=== PATIENT | female | born 1975 | race Caucasian/White ===

== ENCOUNTER 2016-10-11 16:05 | Inpatient (IN) ==
--- NOTE | 2016-10-11 18:45 | Emergency Department Note ---
Disposition Clinical Impression: Upper abdominal pain, Vomiting, History of Graham fundoplication, Pancreatitis , Dehydration, Renal insufficiency, Abnormal chest x-ray Disposition: Admitted As Inpatient Referrals: Guille Salazar MD [Primary Care Provider] - Forms: ED Satisfaction Letter General Adult HPI - General Chief complaint: ED Nausea/Vomiting/Diarrhea Stated complaint: "Has an graham wrap and is vomiting" Time Seen by Provider: 10/11/16 18:43 Source: patient, family Limitations: no limitations - History of Present Illness HPI Narrative: 41-year-old female reports to the emergency department complaining of abdominal pain with some retching and vomiting. She has a history of colostomy as well as Graham fundoplication. The patient is wheel chair bound secondary to cerebral palsy. There is no history of bloody emesis or stool. She reports some diarrhea and urinary symptoms. She thinks she may have a UTI she has had urinary symptoms for the last several days with abdominal pain and vomiting since earlier today. She is not known to be anticoagulated. There is no history of bloody emesis or stool. There is no history of chest pain or shortness of breath no fever or rupinder flank pain although some slight left- sided back pain is reported. There is no history of rash or injury. No confusion. The patient denies any sick contacts. She describes diarrhea as well. The patient is concerned she may be dehydrated, she states she has abdominal bloating and abdominal pain, she also also concerned about a possible UTI. She is not known to be diabetic. Pain Scale: 10 - Related Data Home Medications Medication Instructions Recorded Confirmed ALPRAZolam [Xanax 1 MG Tablet] 1 mg PO BID PRN 10/12/15 10/12/15 ARIPiprazole [Abilify] 20 mg PO DAILY 10/12/15 10/12/15 Baclofen [Lioresal] 10 mg PO TID 10/12/15 10/12/15 Cyclobenzaprine [Flexeril] 10 mg PO TID 10/12/15 10/12/15 DULoxetine [Cymbalta] 30 mg PO DAILY 10/12/15 10/12/15 Docusate [Colace] 100 mg PO BID 10/12/15 10/12/15 Ergocalciferol (VITAMIN D2) 50,000 unit PO QWEEK 10/12/15 10/12/15 [Vitamin D2 (50,000 UNIT)] Linaclotide [Linzess] 145 mcg PO BID 10/12/15 10/12/15 Meloxicam [Mobic] 7.5 mg PO BID 10/12/15 10/12/15 Metoprolol XL (24 HR) Succ [Toprol 25 mg PO HS 10/12/15 10/12/15 Xl] OxyCODONE CONC 5 - 20 mg PO Q6HR PRN 10/12/15 10/12/15 Promethazine [Phenergan] 25 mg PO Q6HR PRN 10/12/15 10/12/15 Topiramate [Topamax] 100 mg PO HS 10/12/15 10/12/15 Topiramate [Topamax] 150 mg PO QAM 10/12/15 10/12/15 traMADol [Ultram] 50 mg PO Q6HR PRN 10/12/15 10/12/15 Previous Rx's Medication Instructions Recorded HYDROcodone/Acet 5/325 mg [[place] 1 tab PO Q6H PRN #4 tab 07/29/16 5-325 mg] Fluconazole [Diflucan] 150 mg PO Q72H #2 tab 09/03/16 Levofloxacin [Levaquin] 500 mg PO DAILY #10 tablet 09/03/16 Allergies Allergy/AdvReac Type Severity Reaction Status Date / Time dicyclomine [From Bentyl] AdvReac Mild Hives Verified 02/09/16 15:51 acetaminophen AdvReac Unknown ELEVATED Verified 02/09/16 15:51 LIVER ENZYMES ethinyl estradiol AdvReac Unknown UNKNOWN Verified 02/09/16 15:51 [From Ndaeen] levonorgestrel AdvReac Unknown UNKNOWN Verified 02/09/16 15:51 [From Nadeen] lubiprostone [From Amitiza] AdvReac Unknown Hives Verified 02/09/16 15:51 metoclopramide [From Reglan] AdvReac Unknown SEVERE Verified 02/09/16 15:51 STOMACH CRAMPS nalbuphine [From Nubain] AdvReac Unknown Hives Verified 02/09/16 15:51 ondansetron AdvReac Unknown SEVERE Verified 02/09/16 15:51 [From Zofran (as STOMACH hydrochloride)] CRAMPS All systems ED: reviewed and negative except as stated. Past Medical History - Past Medical History Medical history: Reports: arthritis, asthma, diabetes, fibromyalgia, GERD, hyperlipidemia, migraine, other Surgical history: Reports: cholecystectomy, other Psychiatric history: Reports: anxiety BATTERY TEST ENGINEER history: Reports: no BATTERY TEST ENGINEER history - Social History Smoking Status: Never smoker Smokeless Tobacco Status: No Alcohol use: Reports: none Drug use: Reports: none Physical Exam - General Limitations: no limitations General appearance: in no apparent distress - Head Head exam: atraumatic, normocephalic, normal inspection - Eye Eye exam: Present: normal appearance, PERRL, EOMI - ENT ENT exam: normal exam, normal oropharynx, mucous membranes dry, TM's normal bilaterally, normal external ear exam - Neck Neck exam: Present: normal inspection, full ROM, trachea midline. Absent: meningismus - Chest Chest inspection: Present: normal inspection, symmetric chest wall rise. Absent : tenderness - Respiratory Respiratory exam: Present: normal lung sounds bilaterally. Absent: respiratory distress, wheezes, stridor, accessory muscle use, prolonged expiratory phase - Cardiovascular Cardiovascular exam: Present: regular rate, normal rhythm, normal heart sounds - Abdominal Exam Abdominal exam: Present: soft, tenderness, distention, normal bowel sounds, other (Colostomy in place.). Absent: guarding, rebound, rigidity, trauma, pulsatile mass Abdominal tenderness: Present: LUQ, epigastrium - Extremities Exam Extremities exam: Present: normal inspection, full ROM, normal capillary refill. Absent: tenderness, pedal edema, joint swelling, calf tenderness - Expanded Lower Extremity Exam Lower leg exam: Absent: Homans' sign Neurovascular/Tendon exam: Present: normal capillary refill. Absent: motor deficit, sensory deficit, tendon deficit, extremity cold to touch, pallor - Back Exam Back exam: Present: normal inspection, full ROM. Absent: tenderness, CVA tenderness (R), CVA tenderness (L), vertebral tenderness - Neurological Exam Neurological exam: Present: alert, oriented X3, CN II-XII intact, motor sensory deficit (Lower extremity paresis and weakness/chronic) - Psychiatric Psychiatric exam: Present: normal affect, normal mood - Skin Skin exam: Present: warm, dry, intact, normal color. Absent: rash, cyanosis, diaphoresis, erythema, pallor, mottled Course Vital Signs Temperature 97.5 F L 10/11/16 16:23 Pulse Rate 101 06/08/17 16:23 Respiratory Rate 20 10/11/16 16:23 Blood Pressure 121/85 10/11/16 16:23 O2 Sat by Pulse Oximetry 97 10/11/16 16:23 Temperature 97.5 F L 10/11/16 16:23 Pulse Rate 101 10/11/16 16:23 Respiratory Rate 20 10/11/16 16:23 Blood Pressure 121/85 10/11/16 16:23 O2 Sat by Pulse Oximetry 97 10/11/16 16:23 Oxygen Delivery Oxygen Delivery Room Air Medical Decision Making - [facility] Narrative Medical decision making narrative: The patient has had recurrent vomiting, she has changes suggestive of dehydration with hemoconcentration and elevated BUN and creatinine, low-grade lactic acidosis is noted, abnormal urinalysis noted, Rocephin given to cover for possible UTI, do not think the patient is necessarily septic, IV fluids given Phenergan and Dilaudid given. Her CT scan shows what appears to be an ileus or early partial small bowel obstruction. She also has an elevated lipase. Based on the patient's symptomatology, dehydration, abnormal CT scan and laboratory studies, I thought it would be appropriate to admit the patient to the hospital. I discussed the case with the hospitalist on-call who has accepted the patient to their care. The patient is currently stable pending admission. - Lab Data Lab results reviewed: Yes I reviewed the patient's lab results. Result diagrams: 10/11/16 21:00 10/11/16 21:00 Lab Results 10/11/16 10/11/16 10/11/16 Range/Units 20:05 20:05 21:00 WBC 13.2 H (4.3-11.1) K/mcL RBC 5.81 H (3.82-4.97) M/mcL Hgb 16.3 H (11.5-15.4) g/dL Hct 50.5 H (35.3-44.9) % MCV 86.9 (83.0-100.0) fL MCH 28.1 (28.0-33.3) pg MCHC 32.3 (31.6-35.5) g/dL RDW 13.5 (11.5-14.5) % Plt Count 329 (140-400) K/mcL MPV 10.0 (9.4-12.4) fL Immature Gran % 0.4 (0-4) % Seg Neutrophils % 92.2 % Lymphocytes % 5.0 % Monocytes % 2.2 % Eosinophils % 0.1 % Basophils % 0.1 % Neutrophils # 12.1 H (1.6-8.9) K/mcL Lymphocytes # 0.7 (0.6-4.6) K/mcL Monocytes # 0.3 (0.0-1.3) K/mcL Eosinophils # 0.0 (0.0-0.6) K/mcL Basophils # 0.0 (0.0-0.2) K/mcL PT (9.4-12.1) Seconds INR APTT (26.0-36.0) Seconds Sodium (136-145) mEq/L Potassium (3.5-4.5) mEq/L Chloride (98-109) mEq/L Carbon Dioxide (19-29) mEq/L BUN (7-20) mg/dL Creatinine (0.57-1.11) mg/dL Est GFR ( Amer) (> 60) Est GFR (Non-Af Amer) (> 60) BUN/Creatinine Ratio (6-26) Glucose (70-99) mg/dL Calculated Osmolality (280-300) Lactic Acid (0.5-2.2) mmol/L Calcium (8.6-10.8) mg/dL Total Bilirubin (0.2-1.2) mg/dL Direct Bilirubin (0.0-0.5) mg/dL Indirect Bilirubin (0.0-1.2) mg/dL AST (5-34) Units/L ALT (0-55) Units/L Alkaline Phosphatase (38-126) Units/L Troponin I (0-0.03) ng/mL C-Reactive Protein (Less than 5) mg/L Serum Total Protein (6.0-8.3) g/dL Albumin (3.5-5.0) g/dL Globulin (2.4-3.5) g/dL Albumin/Globulin Ratio (1.1-2.2) Lipase (8-78) Units/L Serum , Qual (Negative) Urine Color Yellow (Yellow) Urine Clarity Slightly Cloudy A (Clear) Urine pH 5.5 (5.0-8.0) pH Units Ur Specific [place] <= 1.005 L (1.010-1.025) Urine Protein Negative (Neg-Trace) mg/dL Urine Glucose (UA) Normal (Normal) mg/dL Urine Ketones Negative (Negative) mg/dL Urine Blood Moderate H (Negative) Urine Nitrite Negative (Negative) Urine Bilirubin Negative (Negative) Urine Urobilinogen Normal (Normal) mg/dL Ur Leukocyte Esterase Small H (Negative) Urine Microscopic WBC 3-5 H (0-3) per hpf Ur Squamous Epith Cells Many H (None-Few) per lpf Urine Bacteria Many H (None-Few) per hpf Ur Culture Indicated? YES A (NO) Urine Opiates Screen Positive H (Vatnyg=465) ng/mL Ur Barbiturates Screen Negative (Mqujhw=648) ng/mL Ur Phencyclidine Scrn Negative (Cutoff=25) ng/mL Ur Amphetamines Screen Negative (Hblios=2136) ng/mL U Benzodiazepines Scrn Negative (Vpjolv=706) ng/mL Urine Cocaine Screen Negative (Cutoff= 300) ng/mL U Marijuana (THC) Screen Negative (Cutoff = 50) ng/mL 10/11/16 10/11/16 10/11/16 Range/Units 21:00 21:00 21:00 WBC (4.3-11.1) K/mcL RBC (3.82-4.97) M/mcL Hgb (11.5-15.4) g/dL Hct (35.3-44.9) % MCV (83.0-100.0) fL MCH (28.0-33.3) pg MCHC (31.6-35.5) g/dL RDW (11.5-14.5) % Plt Count (140-400) K/mcL MPV (9.4-12.4) fL Immature Gran % (0-4) % Seg Neutrophils % % Lymphocytes % % Monocytes % % Eosinophils % % Basophils % % Neutrophils # (1.6-8.9) K/mcL Lymphocytes # (0.6-4.6) K/mcL Monocytes # (0.0-1.3) K/mcL Eosinophils # (0.0-0.6) K/mcL Basophils # (0.0-0.2) K/mcL PT 11.2 (9.4-12.1) Seconds INR 1.0 APTT 46.3 H (26.0-36.0) Seconds Sodium 139 (136-145) mEq/L Potassium 3.6 (3.5-4.5) mEq/L Chloride 107 (98-109) mEq/L Carbon Dioxide 18 L (19-29) mEq/L BUN 24 H (7-20) mg/dL Creatinine 1.40 H (0.57-1.11) mg/dL Est GFR ( Amer) 50 L (> 60) Est GFR (Non-Af Amer) 41 L (> 60) BUN/Creatinine Ratio 17 (6-26) Glucose 157 H (70-99) mg/dL Calculated Osmolality 295 (280-300) Lactic Acid (0.5-2.2) mmol/L Calcium 10.8 (8.6-10.8) mg/dL Total Bilirubin 0.4 (0.2-1.2) mg/dL Direct Bilirubin 0.2 (0.0-0.5) mg/dL Indirect Bilirubin 0.2 (0.0-1.2) mg/dL AST 22 (5-34) Units/L ALT 77 H (0-55) Units/L Alkaline Phosphatase 232 H (38-126) Units/L Troponin I (0-0.03) ng/mL C-Reactive Protein 11 H (Less than 5) mg/L Serum Total Protein 8.9 H (6.0-8.3) g/dL Albumin 4.5 (3.5-5.0) g/dL Globulin 4.4 H (2.4-3.5) g/dL Albumin/Globulin Ratio 1.0 L (1.1-2.2) Lipase 180 H (8-78) Units/L Serum , Qual (Negative) Urine Color (Yellow) Urine Clarity (Clear) Urine pH (5.0-8.0) pH Units Ur Specific [place] (1.010-1.025) Urine Protein (Neg-Trace) mg/dL Urine Glucose (UA) (Normal) mg/dL Urine Ketones (Negative) mg/dL Urine Blood (Negative) Urine Nitrite (Negative) Urine Bilirubin (Negative) Urine Urobilinogen (Normal) mg/dL Ur Leukocyte Esterase (Negative) Urine Microscopic WBC (0-3) per hpf Ur Squamous Epith Cells (None-Few) per lpf Urine Bacteria (None-Few) per hpf Ur Culture Indicated? (NO) Urine Opiates Screen (Npekrf=588) ng/mL Ur Barbiturates Screen (Gpfjiw=092) ng/mL Ur Phencyclidine Scrn (Cutoff=25) ng/mL Ur Amphetamines Screen (Rdqdpr=2020) ng/mL U Benzodiazepines Scrn (Lztmbx=780) ng/mL Urine Cocaine Screen (Cutoff= 300) ng/mL U Marijuana (THC) Screen (Cutoff = 50) ng/mL 10/11/16 10/11/16 10/11/16 Range/Units 21:00 21:00 21:00 WBC (4.3-11.1) K/mcL RBC (3.82-4.97) M/mcL Hgb (11.5-15.4) g/dL Hct (35.3-44.9) % MCV (83.0-100.0) fL MCH (28.0-33.3) pg MCHC (31.6-35.5) g/dL RDW (11.5-14.5) % Plt Count (140-400) K/mcL MPV (9.4-12.4) fL Immature Gran % (0-4) % Seg Neutrophils % % Lymphocytes % % Monocytes % % Eosinophils % % Basophils % % Neutrophils # (1.6-8.9) K/mcL Lymphocytes # (0.6-4.6) K/mcL Monocytes # (0.0-1.3) K/mcL Eosinophils # (0.0-0.6) K/mcL Basophils # (0.0-0.2) K/mcL PT (9.4-12.1) Seconds INR APTT (26.0-36.0) Seconds Sodium (136-145) mEq/L Potassium (3.5-4.5) mEq/L Chloride (98-109) mEq/L Carbon Dioxide (19-29) mEq/L BUN (7-20) mg/dL Creatinine (0.57-1.11) mg/dL Est GFR ( Amer) (> 60) Est GFR (Non-Af Amer) (> 60) BUN/Creatinine Ratio (6-26) Glucose (70-99) mg/dL Calculated Osmolality (280-300) Lactic Acid 2.7 H (0.5-2.2) mmol/L Calcium (8.6-10.8) mg/dL Total Bilirubin (0.2-1.2) mg/dL Direct Bilirubin (0.0-0.5) mg/dL Indirect Bilirubin (0.0-1.2) mg/dL AST (5-34) Units/L ALT (0-55) Units/L Alkaline Phosphatase (38-126) Units/L Troponin I 0.00 (0-0.03) ng/mL C-Reactive Protein (Less than 5) mg/L Serum Total Protein (6.0-8.3) g/dL Albumin (3.5-5.0) g/dL Globulin (2.4-3.5) g/dL Albumin/Globulin Ratio (1.1-2.2) Lipase (8-78) Units/L Serum , Qual Negative (Negative) Urine Color (Yellow) Urine Clarity (Clear) Urine pH (5.0-8.0) pH Units Ur Specific [place] (1.010-1.025) Urine Protein (Neg-Trace) mg/dL Urine Glucose (UA) (Normal) mg/dL Urine Ketones (Negative) mg/dL Urine Blood (Negative) Urine Nitrite (Negative) Urine Bilirubin (Negative) Urine Urobilinogen (Normal) mg/dL Ur Leukocyte Esterase (Negative) Urine Microscopic WBC (0-3) per hpf Ur Squamous Epith Cells (None-Few) per lpf Urine Bacteria (None-Few) per hpf Ur Culture Indicated? (NO) Urine Opiates Screen (Kzpcto=888) ng/mL Ur Barbiturates Screen (Yuptst=016) ng/mL Ur Phencyclidine Scrn (Cutoff=25) ng/mL Ur Amphetamines Screen (Idhvce=4937) ng/mL U Benzodiazepines Scrn (Kbtpiv=321) ng/mL Urine Cocaine Screen (Cutoff= 300) ng/mL U Marijuana (THC) Screen (Cutoff = 50) ng/mL - Radiology Data Radiology results reviewed: Yes I reviewed the patient's radiology results.
[2016-10-11] MEDS ORDERED: 0.9 % Sodium Chloride 1,000 ML IVC ONE ×2 (19:20→21:37)
[2016-10-11 20:16] LABS: Bilirubin,Urine Negative (Negative); Blood,Urine Moderate (Negative); Clarity,Urine Slightly Cloudy (Clear); Color,Urine Yellow (Yellow); Glucose,Urine (UA) Normal (Normal); Ketones,Urine Negative (Negative); Leukocyte Esterase,Urine Small (Negative); Nitrite,Urine Negative (Negative); PH,Urine 5.5 pH Units (5.0-8.0); Protein,Urine Negative (Neg-Trace); Specific Gravity,Urine <= 1.005 (1.010-1.025); Urobilinogen,Urine Normal (Normal)
[2016-10-11 20:22] LABS: Amphetamine Screen,Urine Negative ng/mL (Cutoff=1000); Barbiturate Screen,Urine Negative ng/mL (Cutoff=200); Benzodiazepines Screen,Urine Negative ng/mL (Cutoff=200); Cannabinoid Screen,Urine Negative ng/mL (Cutoff = 50); Cocaine Screen,Urine Negative ng/mL (Cutoff= 300); Opiate Screen,Urine Positive ng/mL (Cutoff=300); Phencyclidine Screen,Urine Negative ng/mL (Cutoff=25); Squamous Epithelial Cell,Urine Many per lpf (None-Few)
[2016-10-11 20:23] LABS: Bacteria,Urine Many per hpf (None-Few)
[2016-10-11 21:10] LABS: Basophils % 0.1 %; Eosinophils % 0.1 %; Hematocrit 50.5 % (35.3-44.9); Hemoglobin 16.3 g/dL (11.5-15.4); Immature Granulocytes % 0.4 % (0-4); Lymphocytes # 0.7 K/mcL (0.6-4.6); Mean Corpuscular HGB Conc 32.3 g/dL (31.6-35.5); Mean Corpuscular Hemoglobin 28.1 pg (28.0-33.3); Mean Corpuscular Volume 86.9 fL (83.0-100.0); Monocytes # 0.3 K/mcL (0.0-1.3); Monocytes % 2.2 %; Neutrophils # 12.1 K/mcL (1.6-8.9); Platelet Count 329 K/mcL (140-400); Red Blood Count 5.81 M/mcL (3.82-4.97); Red Cell Distribution Width 13.5 % (11.5-14.5); Segmented Neutrophils % 92.2 %
[2016-10-11 21:15] LABS: Prothrombin Time 11.2 Seconds (9.4-12.1)
[2016-10-11] MEDS ORDERED: *HR* HYDROmorphone (PF) 1 MG/ML SYRINGE IVP ONE ×2 (21:23→22:55)
[2016-10-11 21:24] LABS: Calcium 10.8 mg/dL (8.6-10.8); Potassium 3.6 mEq/L (3.5-4.5)
[2016-10-11 21:25] LABS: Activated Partial Thrombo Time 46.3 Seconds (26.0-36.0); Albumin 4.5 g/dL (3.5-5.0); Bilirubin,Direct 0.2 mg/dL (0.0-0.5); Bilirubin,Indirect 0.2 mg/dL (0.0-1.2); Bilirubin,Total 0.4 mg/dL (0.2-1.2); Globulin 4.4 g/dL (2.4-3.5); Total Protein 8.9 g/dL (6.0-8.3)
[2016-10-11] MEDS: Ondansetron 4 MG/2 ML VIAL IVP ONE ×2 (21:28→21:38)
[2016-10-11] MEDS ORDERED: *HR* Promethazine 25 MG/ML VIAL IVP ONE (21:31)
[2016-10-12] MEDS ORDERED: Ondansetron 4 MG/2 ML VIAL IVP PRN (02:56)
[2016-10-12] MEDS ORDERED: Ibuprofen 400 MG TABLET PO PRN (02:56)
[2016-10-12] MEDS ORDERED: Ipratropium/Albuterol Neb 3 ML IH PRN (02:56)
[2016-10-12] MEDS ORDERED: Naloxone 0.4 MG/ML INJ IVP PRN (02:56)
[2016-10-12] MEDS ORDERED: ALPRAZolam 1 MG TABLET PO PRN (03:03)
--- NOTE | 2016-10-12 03:07 | Internal Med History&Physical ---
Date of Encounter: 10/12/16 Time of Encounter: 03:05 Assessment and Plan (1) Sepsis Current visit: No Status: Resolved Sepsis secondary to urinary tract infection Continue Rocephin, urine culture Blood cultures Continue IV fluids Protonix IV for GI prophylaxis and subcutaneous heparin for DVT prophylaxis. Patient will be admitted as inpatient, expected to stay more than 2 midnights. Full code. Time spent on this admission 40 min. High risk due to sepsis Qualifiers: Sepsis type: sepsis due to unspecified organism Qualified Code(s): A41.9 - Sepsis, unspecified organism (2) UTI (urinary tract infection) Current visit: Yes Status: Acute Qualifiers: Urinary tract infection type: acute cystitis Qualified Code(s): N30.00 - Acute cystitis without hematuria (3) Ileus Current visit: Yes Status: Acute Possible ileus versus early partial small bowel obstruction Keep nothing by mouth for now may switch to clears if possible Phenergan and Dilaudid as needed Minimize the use of narcotics Consider surgery consult if not improving (4) Cerebral palsy Current visit: No Status: Chronic Qualifiers: Cerebral palsy type: unspecified type Qualified Code(s): G80.9 - Cerebral palsy, unspecified (5) S/P left colectomy Current visit: No Status: Acute (6) Diabetes Current visit: No Status: Chronic Continue insulin sliding scale Qualifiers: Diabetes mellitus type: type 2 Diabetes mellitus complication status: without complication Diabetes mellitus half-way insulin use: without half-way use Qualified Code(s): E11.9 - Type 2 diabetes mellitus without complications (7) Pancreatitis Current visit: Yes Status: Acute Acute on chronic pancreatitis (recurrent) The patient is clinically symptomatic although the CT scan does not show any inflammation of the pancreas Follow lipase Nothing by mouth, IV fluids Qualifiers: Chronicity: acute Pancreatitis type: unspecified pancreatitis type Acute pancreatitis complication: unspecified Qualified Code(s): K85.90 - Acute pancreatitis without necrosis or infection, unspecified (8) Dehydration Current visit: Yes Status: Acute (9) Renal insufficiency Current visit: Yes Status: Acute Likely secondary to dehydration Hemoconcentration likely secondary to dehydration as well Internal Medicine - H&P: HPI Chief complaint: Abdominal pain Admitted From: Emergency Dept History of present illness: Ms. Burton is a 41 year old female with a past medical history of pancreatitis , diabetes type 2 not insulin-dependent, cerebral palsy, fibromyalgia, peptic ulcer disease, small bowel obstruction who came to the emergency room complaining of 2 days of vomiting, not able to keep anything down, became dehydrated, also complaining of excruciating abdominal pain 10 out of [address] scan of the abdomen showed ileus versus early small bowel obstruction. The patient's lipase was elevated at 180, she complained of epigastric tenderness. Creatinine has increased up to 1.4 from her baseline she is close to 1. Her blood cell count is 13.2 heart rate is 101 hemoglobin is 16.3. Patient has been complaining of dysuria and her UA shows many bacteria and 5 WBC. She is very nauseated. Received a dose of Rocephin at the emergency room. Appears very dehydrated and weak Past Med Surg Social Fam HX - Past Medical History Medical history: arthritis, asthma, diabetes (Not insulin-dependent), fibromyalgia, migraine, other (Cerebral palsy, diabetes type 2 non-insulin- dependent, fibromyalgia, GERD, hyperlipidemia, migraines, recurrent pancreatitis , small bowel obstruction, UTIs, IBS, anxiety) Psychiatric history: anxiety - Past Surgical History Surgical History: cholecystectomy, colostomy, other (Niesen fundoplication, D&C) - Social History Smoking Status: Former smoker Smokeless Tobacco Status: No Alcohol use: none Drug use: none - Family History Mother Name: Aracely James Age: 67 Living Status: Still Living Hx Family Neurologic Disorders: Yes (Fibromyalgia) - Additional Family History Additional family history: Brother with alcoholism, fibromyalgia, mother with rheumatoid arthritis and depression Internal Medicine - H&P: Meds ALPRAZolam [Xanax 1 MG Tablet] 1 mg PO BID PRN 10/12/15 [History] ARIPiprazole [Abilify] 20 mg PO DAILY 10/12/15 [History] Baclofen [Lioresal] 10 mg PO TID 10/12/15 [History] Cyclobenzaprine [Flexeril] 10 mg PO TID 10/12/15 [History] DULoxetine [Cymbalta] 30 mg PO DAILY 10/12/15 [History] Docusate [Colace] 100 mg PO BID 10/12/15 [History] Ergocalciferol (VITAMIN D2) [Vitamin D2 (50,000 UNIT)] 50,000 unit PO QWEEK 12/19 [History] Linaclotide [Linzess] 145 mcg PO BID 10/12/15 [History] Meloxicam [Mobic] 7.5 mg PO BID 10/12/15 [History] Metoprolol XL (24 HR) Succ [Toprol Xl] 25 mg PO HS 10/12/15 [History] OxyCODONE CONC 5 - 20 mg PO Q6HR PRN 10/12/15 [History] Promethazine [Phenergan] 25 mg PO Q6HR PRN 10/12/15 [History] Topiramate [Topamax] 100 mg PO HS 10/12/15 [History] Topiramate [Topamax] 150 mg PO QAM 10/12/15 [History] Albuterol Sulfate [Proair Hfa] 2 puff IH Q4H PRN 10/11/16 [History] Azelastine HCl 1 drop BOTH EYES BID PRN 10/11/16 [History] Onabotulinumtoxina [Botox] unit IM [id number] 10/11/16 [History] Potassium Chloride [Klor-Con 10] 10 meq PO DAILY 10/11/16 [History] Allergies dicyclomine [From Bentyl] Adverse Reaction (Mild, Verified 02/09/16 15:51) Hives acetaminophen Adverse Reaction (Unknown, Verified 02/09/16 15:51) ELEVATED LIVER ENZYMES ethinyl estradiol [From Nadeen] Adverse Reaction (Unknown, Verified 02/09/16 15:51) UNKNOWN levonorgestrel [From Nadeen] Adverse Reaction (Unknown, Verified 02/09/16 15: 51) UNKNOWN lubiprostone [From Amitiza] Adverse Reaction (Unknown, Verified 02/09/16 15:51) Hives metoclopramide [From Reglan] Adverse Reaction (Unknown, Verified 02/09/16 15:51) SEVERE STOMACH CRAMPS nalbuphine [From Nubain] Adverse Reaction (Unknown, Verified 02/09/16 15:51) Hives ondansetron [From Zofran (as hydrochloride)] Adverse Reaction (Unknown, Verified 02/09/16 15:51) SEVERE STOMACH CRAMPS All Systems PM: A 10-system review of systems was performed and is negative for pertinent findings except as documented above in the HPI. Review of systems: Other systems out of the 10 reviewed were negative - Constitutional Vitals: Temp Pulse Resp BP Pulse Ox 98.2 F 101 14 118/79 91 10/12/16 01:02 10/12/16 01:02 10/12/16 01:02 10/12/16 01:02 10/12/16 01:02 General appearance: Present: A&O X 3 (Dry mucosa) - Head Head exam: Present: atraumatic, normocephalic - Eye Eye exam: Present: PERRL, conjuntiva pink, sclera anicteric Pupils: Present: PERRL - Neck Neck exam general surgery: Present: supple, trachea midline. Absent: lymphadenopathy - Respiratory Respiratory exam: Present: decreased breath sounds, CTAB. Absent: accessory muscle use, rales, rhonchi, wheezes - Cardiovascular Cardiovascular exam: Present: RRR, +S1, +S2. Absent: diastolic murmur, gallop, rubs, systolic murmur - GI/Abdominal GI/Abdominal exam: Present: distended (Colostomy in place,), normal bowel sounds , soft, tenderness (Epigastric tenderness), no peritoneal signs - Extremities Exam Extremities exam: Present: warm, radial pulses palpable and symetrical. Absent : calf tenderness, cyanotic, pedal edema Additional comments: Lower extremities appear atrophic - Neurological Exam Neurological exam: Present: CN II-XII intact, oriented X3, no focal deficits. Absent: pronater drift, facial droop, speech deficit - Skin Skin exam: Present: dry, intact Internal Med - H&P Results - Labs CBC & Chem 7: 10/11/16 21:00 10/11/16 21:00
[2016-10-12] MEDS ORDERED: D5% in Water 1,000 ML IVC PRN (03:16)
[2016-10-12] MEDS ORDERED: *HR* Dextrose 50 % in Water (Syg) 50 ML SYRINGE IVP PRN (03:16)
[2016-10-12] MEDS ORDERED: Dextrose Gel 15 GM PO PRN ×2 (03:16)
[2016-10-12] MEDS: 0.9 % Sodium Chloride 1,000 ML IVC SCH ×5 (03:28→22:46)
[2016-10-12] MEDS: *HR* HYDROmorphone (PF) 1 MG/ML SYRINGE IVP PRN ×5 (03:31→17:21)
[2016-10-12 04:35] LABS: BUN/Creatinine Ratio 26 (6-26); Blood Urea Nitrogen 22 mg/dL (7-20); Carbon Dioxide 17 mEq/L (19-29); Chloride 113 mEq/L (98-109); Glucose 137 mg/dL (70-99); Osmolality,Calculated 293 (280-300); Potassium 3.5 mEq/L (3.5-4.5); Sodium 139 mEq/L (136-145); eGFR For African Americans > 60 (> 60); eGFR For Non-African Americans > 60 (> 60)
[2016-10-12 04:48] LABS: Calcium 8.9 mg/dL (8.6-10.8)
[2016-10-12] MEDS: Insulin LISPRO 300 UNITS/3 ML VIAL SQ SCH ×3 (05:56→17:48)
[2016-10-12] MEDS: *HR* Heparin 5,000 UNIT/ML VIAL SQ SCH ×2 (06:00→13:36)
[2016-10-12] MEDS ORDERED: Pantoprazole 40 MG VIAL IVP SCH (09:00)
[2016-10-12] MEDS ORDERED: ARIPiprazole 2 MG TABLET PO SCH (09:00)
[2016-10-12] MEDS ORDERED: Topiramate 100 MG TABLET PO SCH ×2 (09:00→21:00)
[2016-10-12] MEDS: Baclofen 10 MG TABLET PO SCH ×2 (10:39→15:13)
--- NOTE | 2016-10-12 11:01 | Internal Med Progress Note ---
Addendum entered and electronically signed by Maru Torrez DO 10/12/16 19:55: Case was discussed with Dr. ortiz at 1900. Patient will be transferred to the ICU. CT scan of the abdomen and pelvis and chest pending at this time. Addendum entered and electronically signed by Maru Torrez DO 10/12/16 19:17: Error in document: sigmoid colon perforation with end colostomy performed by Dr. Santiago. NOT SBO and small bowel resection. Please not is was 21 cm from splenic flexure and sigmoid colon. Original Note: <Maru Torrez - Last Filed: 10/12/16 18:22> Date of Encounter: 10/12/16 Time of Encounter: 09:00 - Assessment and plan (1) Ileus Current Visit: Yes Status: Suspected Assessment and plan: Patient has had minimal stool output or gas into her colostomy bag over the last 4 days. Patient develop sudden onset of abdominal pain with vomiting despite having Graham fundoplication. Patient has high risk for obstruction due to her multiple prior abdominal surgeries that include: Cholecystectomy, Graham fundoplication 5, small bowel rupture with small bowel resection and end colostomy May [address] Santiago, hiatal hernia repair, ventral hernia repair, abdominal hernia repair. Abdominal physical exam correlated to imaging study. Abdomen/Pelvis CT 10/11/16 18:45 IMPRESSION: Suggestion of small bowel ileus versus early bowel obstruction. Mild pelvic free fluid. Chest X-Ray 10/11/16 19:06 IMPRESSION: Distended stomach and bowel loops containing air-fluid levels. Recommend dedicated abdominal imaging follow-up. Low lung volume chest x-ray with mild left basilar atelectasis or fibrosis suspected. Plan Conservative management: Possible ileus versus early partial small bowel obstruction. If patient fails conservative management she may require surgical intervention. Daily abdominal exams Nothing by mouth Supportive care and pain control: Dilaudid as needed. Minimize the use of narcotics. IV fluids at 175 mL per hour IV antibiotics ceftriaxone Anti-emetic: Phenergan when necessary PPI therapy: Patoprazole 40 mg IVP daily Heparin 5,000 units SQ twice daily for DVT prophylaxis Surgery is following: Dr. ortiz was consultative for surgical evaluation. He will evaluate and make recommendations. The assessment and plan as outlined above was discussed with the patient and/or family members who expressed understanding and agreement. All questions were answered. (2) Pancreatitis Current Visit: Yes Status: Acute Assessment and plan: Patient with history of 3 prior episodes of pancreatitis. Acute on chronic pancreatitis. Conservative management as above. Primary analgesics acetaminophen IV fluids Lipase on admission 180. We will continue to follow. Qualifiers: Chronicity: acute Pancreatitis type: unspecified pancreatitis type Acute pancreatitis complication: unspecified Qualified Code(s): K85.90 - Acute pancreatitis without necrosis or infection, unspecified (3) UTI (urinary tract infection) Current Visit: Yes Status: Acute Assessment and plan: Patient reports that she has had dark urine with a foul odor for the past 4 days she describes hesitancy as her only symptom. She denies burning, pyuria, hematuria. Preliminary urine culture demonstrates gram-negative rods. Continue ceftriaxone Continue IV fluids to maintain output. Final culture pending. Qualifiers: Urinary tract infection type: acute cystitis Hematuria presence: without hematuria Qualified Code(s): N30.00 - Acute cystitis without hematuria (4) Cerebral palsy Current Visit: Yes Status: Chronic Assessment and plan: Patient has no use of her lower extremities and is wheelchair-bound. Qualifiers: Cerebral palsy type: unspecified type Qualified Code(s): G80.9 - Cerebral palsy, unspecified (5) Diabetes Current Visit: Yes Status: Chronic Assessment and plan: Hold oral hypoglycemics Blood glucose monitoring per protocol Continue insulin sliding scale Qualifiers: Diabetes mellitus type: type 2 Diabetes mellitus complication status: without complication Diabetes mellitus rn long term care insulin use: without rn long term care use Qualified Code(s): E11.9 - Type 2 diabetes mellitus without complications (6) DVT prophylaxis Current Visit: Yes Status: Acute Assessment and plan: Heparin 5,000 units SQ twice daily for DVT prophylaxis The assessment and plan as outlined above was discussed with the patient and/or family members who expressed understanding and agreement. All questions were answered. (7) History of Graham fundoplication Current Visit: Yes Status: Acute Assessment and plan: Patient reports that she has had 5 previous Graham fundoplications concern evident as patient describes multiple episodes of vomiting clear fluid up. She is high risk for small bowel obstruction due to prior surgeries. Surgery is following. We will follow recommendations we thank them for the consult. - Subjective Interval history: Patient was seen and examined. She reports that she has had stool in her colostomy bag without passage of air like she normally does. Patient states that there is a small bulging area near her colostomy that is new over the past 4 days and has been getting "harder". Patient reports abdominal pain around colostomy site that radiates to her back. Patient reports that she did not sleep well last night. No other acute events. - Constitutional Vitals: Temp Pulse Resp BP Pulse Ox 98.0 F 110 18 114/84 100 10/12/16 08:08 10/12/16 08:08 10/12/16 08:08 10/12/16 08:08 10/12/16 08:08 General appearance: Present: A&O X 3 (Dry mucosa) Exam: General: Cooperative, pleasant, mild distress, alert and oriented 3, answers questions appropriately she becomes tearful on exam and feels like her medical problems are her fault HEENT: Normocephalic, atraumatic, neck supple, trachea midline, Conjunctiva pink , sclera anicteric, EOMI, PERRL, oral mucosa moist, no orophargeal erythema or exudates Respiratory: No accessory muscle usage, clear to auscultation bilaterally, no wheezes/rhonchi/rales appreciated Cardiovascular: Regular rate and rhythm, S1 and S2 present, no murmurs/rubs/ gallops/clicks appreciated GI/abdominal: Nondistended, tender to palpation periumbilical around stoma site , soft, normal bowel sounds, no peritoneal signs there is a colostomy bag present with minimal stool leakage. Suprapubic tenderness. Patient reports dark urine with odor over the past 4 days associated with hesitancy she denies burning. Noyola catheter is in place. Extremities: No calf tenderness, noncyanotic, no pedal edema appreciated, warm, lower extremity pulses palpable and symmetrical, muscular atrophy bilaterally upper and lower extremities patient has cerebral palsy and is generally wheelchair bound and does not use lower extremities to ambulate. Neurological: Alert and oriented 3, no facial droop, no focal deficits Skin: Dry, intact, normal color Internal Medicine: Result - Labs CBC & Chem 7: 10/11/16 21:00 10/12/16 04:07 - ABG Interpretation ABG results: PT/INR, D-dimer PT 11.2 Seconds (9.4-12.1) 10/11/16 21:00 Consult Discharge Plan - Plan Referrals: Guille Salazar MD [Primary Care Provider] - Ghanshyam Ortiz MD [Non-Partnered Physician] - <Adriel Fernandez - Last Filed: 10/12/16 20:20> Date of Encounter: 10/12/16 - Constitutional Vitals: Temp Pulse Resp BP Pulse Ox 98.2 F 160 30 126/88 90 10/12/16 14:20 10/12/16 20:14 10/12/16 20:14 10/12/16 20:14 10/12/16 20:14 Internal Medicine: Result - Labs CBC & Chem 7: 10/11/16 21:00 10/12/16 18:54 Labs: BMP 10/12/16 18:54 Sodium 141 Potassium 3.6 Chloride 114 H Carbon Dioxide 15 L BUN 21 H Creatinine 0.88 Glucose 104 H Calcium 8.7 - ABG Interpretation ABG results: PT/INR, D-dimer PT 11.2 Seconds (9.4-12.1) 10/11/16 21:00 - Impressions Impressions KUB X-Ray 10/12/16 18:05 IMPRESSION: 1. Multiple gas-filled mildly dilated large and small bowel in a pattern suggestive of an ileus. D/ / Mick Charlton MD / Mick Charlton MD Interpreting Provider: Mick Charlton MD Abdomen/Pelvis CT 10/12/16 18:41 IMPRESSION: Interval bowel perforation, at the level of previous Graham fundoplication, with spillage of bowel contents and air into the right pleural cavity. Case discussed emergently with Dr. Comer at 8 p.m. on 10/12/2016. D/ / Adelso Benjamin MD / Adelso Benjamin MD Interpreting Provider: Adelso Benjamin MD Chest CT 10/12/16 19:40 IMPRESSION: Interval bowel perforation, at the level of previous Graham fundoplication, with spillage of bowel contents and air into the right pleural cavity. Case discussed emergently with Dr. Comer at 8 p.m. on 10/12/2016. D/ / Adelso Benjamin MD / Adelso Benjamin MD Interpreting Provider: Adelso Benjamin MD - Attending Attestation Patient seen and exained, needs trasfer to tertiary care facility, esophageal perf. D/W surgeon. Endorsed to night team.
[2016-10-12] MEDS ORDERED: ARIPiprazole 10 MG TABLET PO SCH (12:45)
[2016-10-12] MEDS ORDERED: *HR* HYDROmorphone (PF) 1 MG/ML SYRINGE IVP ONE (18:28)
[2016-10-12] MEDS ORDERED: Lidocaine Jelly 11 ml Syringe TP ONE (18:55)
[2016-10-12 19:13] LABS: BUN/Creatinine Ratio 24 (6-26); Blood Urea Nitrogen 21 mg/dL (7-20); Calcium 8.7 mg/dL (8.6-10.8); Carbon Dioxide 15 mEq/L (19-29); Chloride 114 mEq/L (98-109); Glucose 104 mg/dL (70-99); Osmolality,Calculated 295 (280-300); Potassium 3.6 mEq/L (3.5-4.5); Sodium 141 mEq/L (136-145); eGFR For African Americans > 60 (> 60); eGFR For Non-African Americans > 60 (> 60)
[2016-10-12] MEDS ORDERED: 0.9 % Sodium Chloride 1,000 ML IVC ONE (19:26)
[2016-10-12] MEDS ORDERED: *HR* HYDROmorphone (PF) 1 MG/ML SYRINGE IVP PRN (19:33)
[2016-10-12] MEDS ORDERED: *HR* HYDROmorphone 2 MG/ML SYRINGE IVP PRN (20:00)
[2016-10-12] MEDS ORDERED: Metoprolol XL (24 HR) Succ 25 MG TAB.ER.24H PO SCH (21:00)
--- NOTE | 2016-10-12 22:15 | Event Note ---
Date of Encounter: 10/12/16 Time of Encounter: 22:06 Central Venous Catheter (CVC, Central Line) Placement- CENTRAL LINE NOT PLACED. Date: 10/12/2016 Time: 2129 Indication: Hemodynamic monitoring/Intravenous access Resident: Dr. Andrea Keys Attending: Dr. Jimenez A time-out was completed verifying correct patient, procedure, site, positioning , and special equipment if applicable. The patient was placed in a dependent position appropriate for central line placement based on the vein to be cannulated. The patients left groin was prepped and draped in sterile fashion. 1 % Lidocaine was used to anesthetize the surrounding skin area. Obtained a flash with appropriate flow back. Guide wire was unable to be successfully threaded and the site was unable to be cannulated successfully. The site was attempted twice. The line placement was aborted. Estimated Blood Loss: 0 ml This entire procedure was performed under supervision by Dr. Jimenez.
[2016-10-12 22:22] VITALS: BP 113/77
--- NOTE | 2016-10-12 22:22 | Event Note ---
Date of Encounter: 10/12/16 Time of Encounter: 21:50 IO placement Date: 10/12/2016 Time: 2150 Indication: Hemodynamic monitoring/Intravenous access Resident: Andrea Keys DO Attending: Dr. Sonia Jimenez A time-out was completed verifying correct patient, procedure, site, positioning, and special equipment if applicable. The left tibial tuberocity was palpated and the IO site was positioned two finger widths below on the anterior surface of the tibia. The surface was prepped with chloraprep and the IO was introduced into the tibia successfully on the first attempt. The site was flushed with lidocaine and sterile saline. Appropriate draw back was obtained. This procedure was performed under direct supervision by Dr. Sonia Jimenez.
--- NOTE | 2016-10-12 22:40 | Event Note ---
<Andrea Keys - Last Filed: 10/12/16 22:23> Date of Encounter: 10/12/16 Time of Encounter: 17:00 I was called to see if Mrs. Burton 41-year-old female at bedside after notification that she was having poor urine output throughout the day. After evaluation it was determined that Mrs. Burton had significant changes in her medical condition over the last several hours. She was tachycardic, dyspneic, pale, rigors and complaining of pain radiating from her right chest to her right lower back. Stat vitals were obtained that demonstrated the patient was tachycardic, dyspneic rhonchi in her lower right lung base, diaphoretic, mildly hypoxic with oxygen saturation around 90% room air, abdominal examination demonstrated a distended tender abdomen that was tense in nature with hypoactive bowel sounds. Stat KUB, lactic acid, CMP, cardiac monitoring were obtained. KUB demonstrated diffuse bowel gas pattern of the abdomen. Noyola catheter was evaluated, bladder scan was obtained with 76 mL urine. Due to the patient's decline in clinical status a stat CT of the abdomen was obtained. The case was discussed with the general surgeon Dr. Ortiz, and imaging was reviewed prior to the return of the CT without contrast of the abdomen. The CT of the abdomen was reviewed demonstrating esophageal dilation with free fluid and consolidation within the pleural space under the right lung. A stat CT of the chest was obtained demonstrating significant findings including interval bowel perforation at the level of previous Alejandro fundoplication with spillage of bowel contents of air into the right pleural cavity. The patient was transferred from the CT scan room to the ICU. Numerous hospitals including [facility] were contacted without any availability for transfer due to the complications of this patient's condition. The [facility] was contacted and accepted transfer to thoracic surgery. The case was discussed with Dr. Clayton with cardiothoracic surgery who accepted the patient. A central line placement was attempted twice in the left groin and once in the right groin without success and subsequently an IO was placed in the left proximal tibia with appropriate flow. Med flight in route. <Adriel Fernandez - Last Filed: 10/13/16 07:22> Date of Encounter: 10/13/[address] Keys.
[2016-10-13] MEDS ORDERED: *HR* Heparin 5,000 UNIT/ML VIAL SQ SCH (06:00)
--- NOTE | 2016-10-13 09:03 | Electrocardiograph Report ---
[place] [id number] Test Date: 2016-10-11 Pat Name: Maria Del Rosario Burton Department: 104 Room: 11 Gender: F [employer]: NAM : 1975 Requested By: Tigre Hays Order Number: [id number] Reading MD: Augie Watkins DO Measurements Intervals [place] Rate: 128 P: 32 FL: 111 QRS: -1 QRSD: 76 T: 40 QT: 298 QTc: 374 Interpretive Statements SINUS TACHYCARDIA WITH SHORT FL INTERVAL NONSEPCIFIC ST-T CHANGES Electronically Signed On 10-13-2016 9:01:29 EDT by Augie Watkins DO
--- NOTE | 2016-10-13 16:47 | Discharge Summary ---
Date of Encounter: 10/12/16 Time of Encounter: 21:00 - Discharge Diagnosis (1) Esophageal perforation Priority: Primary Status: Acute (2) History of Graham fundoplication Priority: Secondary Status: Acute (3) Ileus Priority: Secondary Status: Suspected - Discharge Medications Home Medications: ALPRAZolam [Xanax 1 MG Tablet] 1 mg PO BID PRN 10/12/15 [History] ARIPiprazole [Abilify] 20 mg PO DAILY 10/12/15 [History] Baclofen [Lioresal] 10 mg PO TID 10/12/15 [History] Cyclobenzaprine [Flexeril] 10 mg PO TID 10/12/15 [History] DULoxetine [Cymbalta] 30 mg PO DAILY 10/12/15 [History] Docusate [Colace] 100 mg PO BID 10/12/15 [History] Ergocalciferol (VITAMIN D2) [Vitamin D2 (50,000 UNIT)] 50,000 unit PO QWEEK 12/19 [History] Linaclotide [Linzess] 145 mcg PO BID 10/12/15 [History] Meloxicam [Mobic] 7.5 mg PO BID 10/12/15 [History] Metoprolol XL (24 HR) Succ [Toprol Xl] 25 mg PO HS 10/12/15 [History] OxyCODONE CONC 5 - 20 mg PO Q6HR PRN 10/12/15 [History] Promethazine [Phenergan] 25 mg PO Q6HR PRN 10/12/15 [History] Topiramate [Topamax] 100 mg PO HS 10/12/15 [History] Topiramate [Topamax] 150 mg PO QAM 10/12/15 [History] Albuterol Sulfate [Proair Hfa] 2 puff IH Q4H PRN 10/11/16 [History] Azelastine HCl 1 drop BOTH EYES BID PRN 10/11/16 [History] Onabotulinumtoxina [Botox] unit IM [id number] 10/11/16 [History] Potassium Chloride [Klor-Con 10] 10 meq PO DAILY 10/11/16 [History] Allergies/Adverse Reactions: Allergies dicyclomine [From Bentyl] Adverse Reaction (Mild, Verified 02/09/16 15:51) Hives acetaminophen Adverse Reaction (Unknown, Verified 02/09/16 15:51) ELEVATED LIVER ENZYMES ethinyl estradiol [From Nadeen] Adverse Reaction (Unknown, Verified 02/09/16 15:51) UNKNOWN levonorgestrel [From Nadeen] Adverse Reaction (Unknown, Verified 02/09/16 15: 51) UNKNOWN lubiprostone [From Amitiza] Adverse Reaction (Unknown, Verified 02/09/16 15:51) Hives metoclopramide [From Reglan] Adverse Reaction (Unknown, Verified 02/09/16 15:51) SEVERE STOMACH CRAMPS nalbuphine [From Nubain] Adverse Reaction (Unknown, Verified 02/09/16 15:51) Hives ondansetron [From Zofran (as hydrochloride)] Adverse Reaction (Unknown, Verified 02/09/16 15:51) SEVERE STOMACH CRAMPS Procedures/tests Complete & Pending: Procedures Performed prior 72 hours Category Date Time Status CT abd pelvis wo no iv no oral [CT] Stat Cat Scan 10/12/16 18:[address] chest w/o contrast [CT chest wo con] [CT] Stat Cat Scan 10/12/16 19:40 Completed Date of admission: 10/12/16 06:08 Primary care physician: Guille Salazar MD Consults: 10/12/16 18:00 Consult to Surgery [CONS] Routine Consulting Provider: Surgery Gerald Ortiz Reason for Consult: ileus versus early partial small bowel obstruction Call Completed: Yes Discharging clinician: Adriel Fernandez (transfer to ) - Patient Status Disposition: Transfer Critical Access Hosp Condition: Critical - Discharge Instructions Follow Up With: Guille Salazar MD [Primary Care Provider] - Ghanshyam Ortiz MD [Non-Partnered Physician] - Interval History: Ms. Burton is a 41 year old female with a past medical history of pancreatitis , diabetes type 2 not insulin-dependent, cerebral palsy, fibromyalgia, peptic ulcer disease, small bowel obstruction who came to the emergency room complaining of 2 days of vomiting, not able to keep anything down, became dehydrated, also complaining of excruciating abdominal pain 10 out of [address] scan of the abdomen showed ileus versus early small bowel obstruction. The patient's lipase was elevated at 180, she complained of epigastric tenderness. Creatinine has increased up to 1.4 from her baseline she is close to 1. Her blood cell count is 13.2 heart rate is 101 hemoglobin is 16.3. Patient has been complaining of dysuria and her UA shows many bacteria and 5 WBC. She is very nauseated. Received a dose of Rocephin at the emergency room. Appears very dehydrated and weak Hospital course: Ms. Burton is a 41 year old female. Mrs. Burton 41-year-old female was seen at at bedside, she was having poor urine output throughout the day. After evaluation it was determined that Mrs. Burton had significant changes in her medical condition over the last several hours. She was tachycardic, dyspneic, pale, rigors and complaining of pain radiating from her right chest to her right lower back. Stat vitals were obtained that demonstrated the patient was tachycardic, dyspneic rhonchi in her lower right lung base, diaphoretic, mildly hypoxic with oxygen saturation around 90% room air, abdominal examination demonstrated a distended tender abdomen that was tense in nature with hypoactive bowel sounds. Stat KUB, lactic acid, CMP, cardiac monitoring were obtained. KUB demonstrated diffuse bowel gas pattern of the abdomen. Noyola catheter was evaluated, bladder scan was obtained with 76 mL urine. Due to the patient's decline in clinical status a stat CT of the abdomen was obtained. The case was discussed with the general surgeon Dr. Ortiz, and imaging was reviewed prior to the return of the CT without contrast of the abdomen. The CT of the abdomen was reviewed demonstrating esophageal dilation with free fluid and consolidation within the pleural space under the right lung. A stat CT of the chest was obtained demonstrating significant findings including interval bowel perforation at the level of previous Alejandro fundoplication with spillage of bowel contents of air into the right pleural cavity. The patient was transferred from the CT scan room to the ICU. Numerous hospitals including [facility] , [facility] were contacted without any availability for transfer due to the complications of this patient's condition. The [facility] was contacted and accepted transfer to thoracic surgery. The case was discussed with Dr. Clayton with cardiothoracic surgery who accepted the patient. Med flight transported the patient. - Time Spent with Patient Total time spent providing and/or coordinating discharge services: - Constitutional Vitals: Temp Pulse Resp BP Pulse Ox 98.2 F 148 19 113/77 94 10/12/16 14:20 10/12/16 22:20 10/12/16 22:20 10/12/16 22:20 10/12/16 22:20 General appearance: Present: A&O X 3 (Dry mucosa), severe distress - Head Head exam: Present: atraumatic, normocephalic - Eye Eye exam: Present: PERRL, conjuntiva pink, sclera anicteric Pupils: Present: PERRL - Neck Neck exam general surgery: Present: supple, trachea midline. Absent: lymphadenopathy - Respiratory Respiratory exam: Present: CTAB. Absent: accessory muscle use, rales, rhonchi, wheezes - Cardiovascular Cardiovascular exam: Present: RRR, +S1, +S2. Absent: diastolic murmur, gallop, rubs, systolic murmur - GI/Abdominal GI/Abdominal exam: Present: hypoactive bowel sounds, soft, tenderness. Absent: distended - Extremities Exam Extremities exam: Present: warm, radial pulses palpable and symetrical. Absent : calf tenderness, cyanotic, pedal edema - Neurological Exam Neurological exam: Present: CN II-XII intact, oriented X3, no focal deficits. Absent: pronater drift, facial droop, speech deficit - Skin Skin exam: Present: dry, intact
== END 2016-10-12 23:34 | disposition critical access hospital (66) | DRG 871 ==
LOC: EMEROO 16:05 → 3ANU 16:05 → ICNU 10-12 20:03
PROVIDERS: ADMIT Internal Medicine Endocrinology, Diabetes & Metabolism; ATTEND Internal Medicine Endocrinology, Diabetes & Metabolism